=== PATIENT | male | born 1945 | race Caucasian/White ===

== ENCOUNTER → 2016-10-01 | Outpatient (CLI) | payer MEDICARE ==
[~2016-10-01] VITALS: Ht 175.3 cm; Wt 94.3 kg
[2016-10-01 12:52] LABS: Basophils # (auto) 0 uL; Basophils % (auto) 0.4 % (0.0-2.0); CONDITION Y; Eosinophils # (auto) 0.1 uL; Eosinophils % (auto) 1.4 % (0.0-7.0); Hematocrit 46.5 % (41.0-53.0); Hemoglobin 16.1 g/dL (13.5-17.5); Lymphocytes # (auto) 1.3 uL; Lymphocytes % (auto) 25.1 % (10.0-50.0); Mean Corpuscular Hemoglobin 30.5 pg (28.0-32.0); Mean Corpuscular Hgb Conc. 34.6 g/dL (32.0-36.0); Mean Corpuscular Volume 88.3 fL (80.0-100.0); Mean Platelet Volume 9.5 fL (7.4-10.4); Monocytes # (auto) 0.3 uL; Monocytes % (auto) 6.4 % (0.0-12.0); Neutrophils # (auto) 3.5 uL; Neutrophils % (auto) 66.7 % (37.0-80.0); Platelet Count (auto) 195 10^3/uL (140-450); Red Cell Distribution Width 13.3 % (11.6-16.0); White Blood Cell 5.2 10^3/uL (4.4-10.8)
[2016-10-01 13:02] LABS: Albumin 3.6 g/dL (3.4-5.0); Alkaline Phosphatase 79 U/L (45-117); Anion Gap 7 (5-15); Aspartate Aminotransferase 8 U/L (15-37); BUN/Creatinine Ratio 16.7; Bilirubin, Direct < 0.1 mg/dL (0-0.2); Bilirubin, Total 0.7 mg/dL (0.2-1.0); Blood Urea Nitrogen 13 mg/dL (7-18); Calcium 8.6 mg/dL (8.5-10.1); Carbon Dioxide 25 mmol/L (21-32); Chloride 104 mmol/L (98-107); Cholesterol 203 mg/dL (< 200); GFR African American 126 mL/min; GFR Non-African American 104 mL/min; Glucose 243 mg/dL (74-106); HDL Cholesterol 38 mg/dL (40-59); Sodium 136 mmol/L (136-145); Total Protein 7.2 g/dL (6.4-8.2); Triglycerides 423 mg/dL (< 150)
[2016-10-01 13:16] LABS: Urine Bilirubin Negative (Negative); Urine Blood Negative /uL (Negative); Urine Color Yellow (Yellow); Urine Ketone Negative (Negative); Urine Nitrite Negative (Negative); Urine Urobilinogen Normal (Negative)
[2016-10-01 13:23] LABS: Urine Glucose 4+ mg/dL (Normal)
== END | disposition home or self-care (01) ==
LOC: Rad HDHVI 08:30
PROVIDERS: ATTEND Internal Medicine Cardiovascular Disease
DX: I10 Essential (primary) hypertension (principal); E78.00 Pure hypercholesterolemia, unspecified; K74.1 Hepatic sclerosis; E11.9 Type 2 diabetes mellitus without complications; R97.20 Elevated prostate specific antigen [PSA]; R53.81 Other malaise; E03.9 Hypothyroidism, unspecified; D64.9 Anemia, unspecified; E55.9 Vitamin D deficiency, unspecified; N39.0 Urinary tract infection, site not specified
CPT/HCPCS: 36415; 78452; 80048; 80061; 80076; 81003; 82306; 83036; 84153; 84403; 84439; 84443; 85025; 93017; 96374; A9500

== ENCOUNTER → 2016-10-05 | Outpatient (CLI) | payer MEDICARE | END | disposition home or self-care (01) | LOC: Rad HDHVI 08:57 | PROVIDERS: ATTEND Internal Medicine Cardiovascular Disease | DX: I10 Essential (primary) hypertension (principal); R06.02 Shortness of breath | CPT/HCPCS: 93306; 93880 ==

== ENCOUNTER → 2017-07-01 | Outpatient (CLI) | payer MEDICARE, BC ==
[2017-07-01 12:32] LABS: Basophils # (auto) 0 uL; Basophils % (auto) 0.5 % (0.0-2.0); Eosinophils # (auto) 0.1 uL; Eosinophils % (auto) 1.2 % (0.0-7.0); Hematocrit 47.5 % (41.0-53.0); Hemoglobin 16.2 g/dL (13.5-17.5); Lymphocytes # (auto) 1.6 uL; Lymphocytes % (auto) 24.8 % (10.0-50.0); Mean Corpuscular Hemoglobin 30.9 pg (28.0-32.0); Mean Corpuscular Volume 90.7 fL (80.0-100.0); Monocytes # (auto) 0.4 uL; Monocytes % (auto) 6.5 % (0.0-12.0); Neutrophils # (auto) 4.2 uL; Nucleated Red Blood Cells % 0.7 %; Platelet Count (auto) 199 10^3/uL (140-450); Red Blood Cells 5.24 10^6/uL (4.5-5.90); Red Cell Distribution Width 12.7 % (11.8-14.3); White Blood Cell 6.3 10^3/uL (4.4-10.8)
[2017-07-01 13:15] LABS: Albumin 3.8 g/dL (3.4-5.0); BUN/Creatinine Ratio 16.9; Bilirubin, Direct 0.2 mg/dL (0-0.2); Bilirubin, Total 0.6 mg/dL (0.2-1.0); Calcium 9.2 mg/dL (8.5-10.1); Potassium 3.9 mmol/L (3.5-5.1); Total Protein 7.6 g/dL (6.4-8.2)
== END | disposition home or self-care (01) ==
LOC: LAB 09:07
PROVIDERS: ATTEND Internal Medicine Cardiovascular Disease
DX: E78.5 Hyperlipidemia, unspecified (principal); D64.9 Anemia, unspecified; I10 Essential (primary) hypertension; E11.9 Type 2 diabetes mellitus without complications; E03.9 Hypothyroidism, unspecified; E55.9 Vitamin D deficiency, unspecified; R53.81 Other malaise; R97.20 Elevated prostate specific antigen [PSA]
CPT/HCPCS: 36415; 80048; 80061; 80076; 82306; 83036; 84153; 84403; 84443; 85025

== ENCOUNTER → 2018-10-11 | Outpatient (CLI) | payer MEDICARE, BC | END | disposition home or self-care (01) | LOC: Rad HDHVI 09:51 | PROVIDERS: ATTEND Internal Medicine Cardiovascular Disease | DX: I07.1 Rheumatic tricuspid insufficiency (principal); I11.0 Hypertensive heart disease with heart failure; I50.33 Acute on chronic diastolic (congestive) heart failure; E70.0 Classical phenylketonuria; I27.20 Pulmonary hypertension, unspecified | CPT/HCPCS: 93306; 93926 ==

== ENCOUNTER → 2018-10-17 | Outpatient (CLI) | payer MEDICARE, BC ==
[~2018-10-17] VITALS: Ht 175.3 cm; Wt 95.3 kg
[2018-10-17 12:07] LABS: Basophils # (auto) 0 uL; Basophils % (auto) 0.8 % (0.0-2.0); Eosinophils # (auto) 0.1 uL; Eosinophils % (auto) 1.9 % (0.0-7.0); Hematocrit 48.2 % (41.0-53.0); Hemoglobin 16.3 g/dL (13.5-17.5); Lymphocytes # (auto) 1.3 uL; Lymphocytes % (auto) 23.2 % (10.0-50.0); Mean Corpuscular Hemoglobin 30.3 pg (28.0-32.0); Mean Corpuscular Hgb Conc. 33.8 g/dL (32.0-36.0); Mean Corpuscular Volume 89.6 fL (80.0-100.0); Monocytes # (auto) 0.4 uL; Monocytes % (auto) 7.2 % (0.0-12.0); Neutrophils # (auto) 3.7 uL; Neutrophils % (auto) 66.9 % (37.0-80.0); Nucleated Red Blood Cells % 0.5 %; Platelet Count (auto) 181 10^3/uL (140-450); Red Blood Cells 5.38 10^6/uL (4.5-5.90); Red Cell Distribution Width 13.4 % (11.8-14.3); White Blood Cell 5.5 10^3/uL (4.4-10.8)
[2018-10-17 12:11] LABS: Urine Blood Negative /uL (Negative); Urine Specific Gravity 1.022 (1.001-1.035)
[2018-10-17 12:23] LABS: Albumin 3.6 g/dL (3.4-5.0); Anion Gap 9 (5-15); Calcium 9.2 mg/dL (8.5-10.1); Carbon Dioxide 25 mmol/L (21-32); Chloride 103 mmol/L (98-107); Potassium 4.4 mmol/L (3.5-5.1); Sodium 137 mmol/L (136-145)
[2018-10-17 12:30] LABS: Alanine Aminotransferase 24 U/L (16-61); Alkaline Phosphatase 76 U/L (45-117); Aspartate Aminotransferase 12 U/L (15-37); BUN/Creatinine Ratio 18.1; Bilirubin, Total 0.7 mg/dL (0.2-1.0); Blood Urea Nitrogen 17 mg/dL (7-18); Cholesterol 227 mg/dL (< 200); GFR African American 101 mL/min; GFR Non-African American 83 mL/min; Glucose 223 mg/dL (74-106); HDL Cholesterol 35 mg/dL (40-59); Total Protein 7.7 g/dL (6.4-8.2); Triglycerides 463 mg/dL (< 150)
[2018-10-17 12:35] LABS: Free T4 (Free Thyroxine) 1.09 ng/dL (0.89-1.76); Prostate Specific Antigen 0.62 ng/mL (0.0-4.0)
== END | disposition home or self-care (01) ==
LOC: Rad HDHVI 08:25
PROVIDERS: ATTEND Internal Medicine Cardiovascular Disease
DX: C61 Malignant neoplasm of prostate (principal); K90.9 Intestinal malabsorption, unspecified; E29.1 Testicular hypofunction; N39.0 Urinary tract infection, site not specified; E11.65 Type 2 diabetes mellitus with hyperglycemia; Z79.899 Other long term (current) drug therapy
CPT/HCPCS: 36415; 78452; 80053; 80061; 81003; 82306; 82607; 83036; 84153; 84403; 84439; 84443; 85025; 93017; 96374; A9500

== ENCOUNTER → 2019-01-22 | Outpatient (CLI) | payer MEDICARE, BC | END | disposition home or self-care (01) | LOC: LAB 08:17 | PROVIDERS: ATTEND Internal Medicine Cardiovascular Disease | DX: E11.9 Type 2 diabetes mellitus without complications (principal) | CPT/HCPCS: 36415; 83036 ==

== ENCOUNTER → 2020-10-20 | Outpatient (CLI) | payer MEDICARE, BC | END | disposition home or self-care (01) | LOC: Rad HDHVI 14:57 | PROVIDERS: ATTEND Internal Medicine Cardiovascular Disease | DX: R07.89 Other chest pain (principal); E78.5 Hyperlipidemia, unspecified | CPT/HCPCS: 93306 ==

== ENCOUNTER → 2021-03-02 | Outpatient (CLI) | payer MEDICARE, BC | END | disposition home or self-care (01) | LOC: Rad HDHVI 08:49 | PROVIDERS: ATTEND Internal Medicine Cardiovascular Disease | DX: S32.049A Unspecified fracture of fourth lumbar vertebra, initial encounter for closed fracture (principal); S32.059A Unspecified fracture of fifth lumbar vertebra, initial encounter for closed fracture; M47.816 Spondylosis without myelopathy or radiculopathy, lumbar region; M48.061 Spinal stenosis, lumbar region without neurogenic claudication; M40.56 Lordosis, unspecified, lumbar region; M79.9 Soft tissue disorder, unspecified; M25.78 Osteophyte, vertebrae; Q05.7 Lumbar spina bifida without hydrocephalus; X58.XXXA Exposure to other specified factors, initial encounter; Y93.89 Activity, other specified; Y92.89 Other specified places as the place of occurrence of the external cause; Y99.8 Other external cause status | CPT/HCPCS: 72131 ==

== ENCOUNTER → 2021-03-30 | Outpatient (CLI) | payer MEDICARE, BC ==
[2021-03-30 11:09] LABS: Urine Blood Negative /uL (Negative); Urine Specific Gravity 1.019 (1.001-1.035)
[2021-03-30 11:10] LABS: Basophils # (auto) 0.1 10 ^3/uL (0-0.2); Eosinophils # (auto) 0.1 10 ^3/uL (0-0.8); Eosinophils % (auto) 1.8 % (0.0-7.0); Hematocrit 42.2 % (41.0-53.0); Lymphocytes # (auto) 1.4 10 ^3/uL (0.4-5.4); Lymphocytes % (auto) 20.7 % (10.0-50.0); Mean Corpuscular Hemoglobin 30.1 pg (28.0-32.0); Mean Corpuscular Hgb Conc. 33.3 g/dL (32.0-36.0); Mean Corpuscular Volume 90.4 fL (80.0-100.0); Monocytes # (auto) 0.5 10 ^3/uL (0-1.3); Monocytes % (auto) 6.7 % (0.0-12.0); Neutrophils # (auto) 4.9 10 ^3/uL (1.6-8.6); Neutrophils % (auto) 69.8 % (37.0-80.0); Nucleated Red Blood Cells % 0.1 %; Red Blood Cells 4.66 10^6/uL (4.5-5.90); Red Cell Distribution Width 13.4 % (11.8-14.3)
[2021-03-30 11:21] LABS: Potassium 5.1 mmol/L (3.5-5.1)
[2021-03-30 11:28] LABS: Free T4 (Free Thyroxine) 1.37 ng/dL (0.89-1.76); Prostate Specific Antigen 0.74 ng/mL (0.0-4.0)
[2021-03-30 11:30] LABS: Albumin 3.6 g/dL (3.4-5.0); BUN/Creatinine Ratio 20.2; Bilirubin, Total 0.4 mg/dL (0.2-1.0); Calcium 9.4 mg/dL (8.5-10.1); Total Protein 7.5 g/dL (6.4-8.2)
== END | disposition home or self-care (01) ==
LOC: LAB 08:19
PROVIDERS: ATTEND Internal Medicine Cardiovascular Disease
DX: C61 Malignant neoplasm of prostate (principal); E11.9 Type 2 diabetes mellitus without complications; D51.3 Other dietary vitamin B12 deficiency anemia; D64.9 Anemia, unspecified; E55.9 Vitamin D deficiency, unspecified; I10 Essential (primary) hypertension; R00.2 Palpitations; R53.1 Weakness; R30.0 Dysuria
CPT/HCPCS: 36415; 80053; 80061; 81003; 82306; 82607; 83036; 84153; 84403; 84439; 84443; 85025

== ENCOUNTER → 2023-02-01 | Outpatient (CLI) | payer MEDICARE, BC | END | disposition home or self-care (01) | LOC: Rad HDHVI 13:58 | PROVIDERS: ATTEND Internal Medicine Cardiovascular Disease | DX: I08.3 Combined rheumatic disorders of mitral, aortic and tricuspid valves (principal); E78.5 Hyperlipidemia, unspecified | CPT/HCPCS: 93306 ==

== ENCOUNTER → 2023-02-04 | Outpatient (CLI) | payer MEDICARE, BC ==
[~2023-02-04] VITALS: Ht 175.3 cm; Wt 94.8 kg
== END | disposition home or self-care (01) ==
LOC: Rad HDHVI 08:21
PROVIDERS: ATTEND Internal Medicine Cardiovascular Disease
DX: I10 Essential (primary) hypertension (principal); E11.42 Type 2 diabetes mellitus with diabetic polyneuropathy; E11.65 Type 2 diabetes mellitus with hyperglycemia; E78.5 Hyperlipidemia, unspecified
CPT/HCPCS: 78452; 93017; 96374; A9500

== ENCOUNTER → 2023-02-09 | Outpatient (CLI) | payer MEDICARE, BC | END | disposition home or self-care (01) | LOC: Rad HDHVI 08:03 | PROVIDERS: ATTEND Internal Medicine Cardiovascular Disease | DX: I10 Essential (primary) hypertension (principal); E78.5 Hyperlipidemia, unspecified | CPT/HCPCS: 93880 ==

== ENCOUNTER 2023-03-17 06:25 | Inpatient (IN) | payer MEDICARE, BC ==
[2023-03-16 13:53] LABS: Basophils # (auto) 0 10 ^3/uL (0-0.2); Basophils % (auto) 0.6 % (0.0-2.0); Eosinophils # (auto) 0.2 10 ^3/uL (0-0.8); Eosinophils % (auto) 2.4 % (0.0-7.0); Hematocrit 45.1 % (41.0-53.0); Hemoglobin 14.9 g/dL (13.5-17.5); Lymphocytes # (auto) 1.3 10 ^3/uL (0.4-5.4); Lymphocytes % (auto) 18.2 % (10.0-50.0); Mean Corpuscular Hemoglobin 30.7 pg (28.0-32.0); Mean Corpuscular Hgb Conc. 32.9 g/dL (32.0-36.0); Mean Corpuscular Volume 93.2 fL (80.0-100.0); Monocytes # (auto) 0.4 10 ^3/uL (0-1.3); Monocytes % (auto) 6.1 % (0.0-12.0); Neutrophils # (auto) 5.3 10 ^3/uL (1.6-8.6); Neutrophils % (auto) 72.7 % (37.0-80.0); Nucleated Red Blood Cells % 0.1 %; Red Blood Cells 4.84 10^6/uL (4.5-5.90); Red Cell Distribution Width 13.6 % (11.8-14.3); White Blood Cell 7.2 10^3/uL (4.4-10.8)
[2023-03-16 14:05] LABS: INR 0.99 (0.9-1.15); Partial Thromboplastin Time 30.1 SEC (24.5-34.5); Prothrombin Time 10.4 sec (9.3-11.8)
[2023-03-16 14:32] LABS: Chloride 107 mmol/L (98-107); Potassium 4.7 mmol/L (3.5-5.1); Sodium 141 mmol/L (136-145)
[2023-03-16 14:33] LABS: Anion Gap 7 (5-15); Calcium 8.9 mg/dL (8.5-10.1); Carbon Dioxide 27 mmol/L (20-30)
[2023-03-16 14:38] LABS: Blood Urea Nitrogen 20 mg/dL (9-23); Glucose 241 mg/dL (74-106)
[~2023-03-17] VITALS: Ht 175.3 cm; Wt 98.7 kg
[2023-03-17] VITALS (11 sets, daily range): BP systolic 106–163; BP diastolic 77–112; PULSE 68–85; RESP 12–20; TEMP 97.2–97.8; O2SAT 94–99
[~2023-03-17 06:25] MED LIST: CHOL20007 OR; DAPA1TAB4 PO; GABA300C PO; METF-370 PO; TAMS0.4C36 PO
[2023-03-17] MEDS ORDERED: ANGIOMAX 250 MG VIAL IV ONE (07:56)
[2023-03-17] MEDS ORDERED: MIDAZOLAM HCL 2MG/2ML 2ml VIAL (1mg/ml) ONE (07:56)
[2023-03-17] MEDS ORDERED: fentaNYL CITRATE 100 MCG/2 ML VL ONE (07:56)
[2023-03-17] MEDS ORDERED: SODIUM CHL 0.9% 50 ML ONE (07:57)
[2023-03-17] MEDS ORDERED: IOHEXOL 350 MG/ML 100ML IJ ONE (08:21)
[2023-03-17] MEDS ORDERED: ATROPINE SULF 1 MG/10ml SYR ONE (08:27)
[2023-03-17] MEDS ORDERED: TICAGRELOR 90 MG TAB ONE (08:54)
[2023-03-17] MEDS ORDERED: ASPirin 325 MG TAB ONE (08:54)
[2023-03-17] MEDS ORDERED: ACETAMINOPHEN 500 MG TAB PO PRN (09:15)
[2023-03-17] MEDS ORDERED: MORPHINE SULFATE INJ 2 MG/ml SYRG IV PRN (09:15)
[2023-03-17] MEDS ORDERED: DEXTROSE (50%) 50ML SYRG IV PRN (09:15)
[2023-03-17] MEDS ORDERED: ONDANSETRON HCL 4 MG/2 ML VIAL IV PRN (09:15)
[2023-03-17] MEDS ORDERED: NITROGLYCERIN 0.4 MG SL TAB SL PRN (09:15)
[2023-03-17] MEDS ORDERED: [UNRECOGNIZED DRUG - CODE] PO (09:28)
[2023-03-17] MEDS ORDERED: [UNRECOGNIZED DRUG - OTHER] PO SCH (10:00)
[2023-03-17] MEDS ORDERED: HYDROCHLOROTHIAZIDE PO SCH (10:00)
[2023-03-17] MEDS ORDERED: TAMSULOSIN HYDROCHLORIDE 0.4 MG CAP PO ONE (10:05)
[2023-03-17] MEDS: TAMSULOSIN HYDROCHLORIDE 0.4 MG CAP PO SCH (10:19)
[2023-03-17] MEDS: InsuLIN REG 1unit/0.01ml Soln (100units/ml) SC SCH ×3 (12:32→22:00)
[2023-03-17] MEDS: ACCU-CHEK COMFORT CURVE STRIP VI SCH ×3 (12:32→22:02)
[2023-03-17] MEDS ORDERED: ATORVASTATIN 20 MG TAB PO SCH (22:00)
[2023-03-17] MEDS: HYDROCHLOROTHIAZIDE PO SCH (22:02)
[2023-03-17] MEDS: [UNRECOGNIZED DRUG - OTHER] PO SCH (22:02)
[2023-03-17] MEDS: TICAGRELOR 90 MG TAB PO SCH (22:02)
[2023-03-18 05:00] VITALS: BP 134/76; PULSE 75; RESP 20; TEMP 97.9; O2SAT 94
[2023-03-18] MEDS: ACCU-CHEK COMFORT CURVE STRIP VI SCH ×2 (05:18→12:07)
[2023-03-18] MEDS: InsuLIN REG 1unit/0.01ml Soln (100units/ml) SC SCH ×2 (05:18→12:10)
[2023-03-18 08:00] VITALS: PULSE 100
[2023-03-18 09:00] VITALS: BP 136/88; PULSE 106; RESP 20; TEMP 97.8; O2SAT 97
[2023-03-18] MEDS: TAMSULOSIN HYDROCHLORIDE 0.4 MG CAP PO SCH (09:59)
[2023-03-18] MEDS: TICAGRELOR 90 MG TAB PO SCH (09:59)
[2023-03-18] MEDS: [UNRECOGNIZED DRUG - OTHER] PO SCH (10:00)
[2023-03-18] MEDS ORDERED: ASPirin 81 mg TAB PO SCH (10:00)
[2023-03-18] MEDS: HYDROCHLOROTHIAZIDE PO SCH (10:00)
[2023-03-18 13:00] VITALS: BP 129/75; PULSE 99; RESP 18; TEMP 98; O2SAT 96
[2023-03-18 15:14] VITALS: TEMP 36.7
== END 2023-03-18 16:24 | disposition home or self-care (01) | DRG 324 ==
LOC: CATH 06:25 → TELE-WESTW 09:09
PROVIDERS: ADMIT Internal Medicine Cardiovascular Disease; ATTEND Internal Medicine Cardiovascular Disease
PROC: 4A023N7 Measurement of Cardiac Sampling and Pressure, Left Heart, Percutaneous Approach (ICD-10-PCS; principal; 2023-03-17)
PROC: 02703GZ Dilation of Coronary Artery, One Artery with Four or More Intraluminal Devices, Percutaneous Approach (ICD-10-PCS; 2023-03-17)
PROC: 02F03ZZ Fragmentation in Coronary Artery, One Artery, Percutaneous Approach (ICD-10-PCS; 2023-03-17)
PROC: 02C03ZZ Extirpation of Matter from Coronary Artery, One Artery, Percutaneous Approach (ICD-10-PCS; 2023-03-17)
PROC: B2111ZZ Fluoroscopy of Multiple Coronary Arteries using Low Osmolar Contrast (ICD-10-PCS; 2023-03-17)
PROC: B2151ZZ Fluoroscopy of Left Heart using Low Osmolar Contrast (ICD-10-PCS; 2023-03-17)
DX: I25.5 Ischemic cardiomyopathy (principal); E78.5 Hyperlipidemia, unspecified; E11.9 Type 2 diabetes mellitus without complications; I25.10 Atherosclerotic heart disease of native coronary artery without angina pectoris
CPT/HCPCS: 36415; 80048; 82962; 85025; 85610; 85730; 92928; 92929; 92933; 93005; 93458; 99152; C1874; C1887; G0378; G0463; J1815; J2250; Q9967

== ENCOUNTER → 2023-04-07 | Outpatient (CLI) | payer MEDICARE, BC ==
[~2023-04-07] MED LIST changes: -CHOL20007 OR; -GABA300C PO; +[UNRECOGNIZED DRUG - CODE] PO
== END | disposition home or self-care (01) ==
LOC: Rad HDHVI 10:02
PROVIDERS: ATTEND Internal Medicine Cardiovascular Disease
DX: I08.3 Combined rheumatic disorders of mitral, aortic and tricuspid valves (principal); I11.9 Hypertensive heart disease without heart failure; E78.5 Hyperlipidemia, unspecified
CPT/HCPCS: 93306

== ENCOUNTER → 2023-09-19 | Outpatient (CLI) | payer MEDICARE, BC | END | disposition home or self-care (01) | LOC: Rad HDHVI 09:59 | PROVIDERS: ATTEND Internal Medicine Cardiovascular Disease | DX: I34.0 Nonrheumatic mitral (valve) insufficiency (principal); I11.9 Hypertensive heart disease without heart failure; E78.5 Hyperlipidemia, unspecified | CPT/HCPCS: 93306 ==

== ENCOUNTER → 2023-09-28 | Outpatient (CLI) | payer MEDICARE, BC ==
[~2023-09-28] VITALS: Ht 175.3 cm; Wt 96.6 kg
== END | disposition home or self-care (01) ==
LOC: Rad HDHVI 09:47
PROVIDERS: ATTEND Internal Medicine Cardiovascular Disease
DX: R53.83 Other fatigue (principal); I10 Essential (primary) hypertension; E11.9 Type 2 diabetes mellitus without complications; E78.5 Hyperlipidemia, unspecified; E11.42 Type 2 diabetes mellitus with diabetic polyneuropathy; I25.10 Atherosclerotic heart disease of native coronary artery without angina pectoris; Z79.899 Other long term (current) drug therapy
CPT/HCPCS: 78452; 93017; 96374; A9500

== ENCOUNTER 2023-11-16 12:56 | Emergency (ER) | payer MEDICARE, OTHER ==
[~2023-11-16] VITALS: Ht 175.3 cm; Wt 90.9 kg
[~2023-11-16 12:56] MED LIST changes: -TAMS0.4C36 PO; +TAMS0.4C39 PO
[2023-11-16] MEDS: SODIUM CHLORIDE 0.9% 1,000 ML IV ONE (13:30)
[2023-11-16 13:42] LABS: Basophils # (auto) 0.1 10 ^3/uL (0-0.2); Basophils % (auto) 0.5 % (0.0-2.0); Eosinophils # (auto) 0.2 10 ^3/uL (0-0.8); Eosinophils % (auto) 1.7 % (0.0-7.0); Hematocrit 42.8 % (41.0-53.0); Hemoglobin 14.4 g/dL (13.5-17.5); Lymphocytes # (auto) 2.6 10 ^3/uL (0.4-5.4); Lymphocytes % (auto) 26.4 % (10.0-50.0); Mean Corpuscular Hemoglobin 31.7 pg (28.0-32.0); Mean Corpuscular Hgb Conc. 33.7 g/dL (32.0-36.0); Mean Corpuscular Volume 94.1 fL (80.0-100.0); Monocytes # (auto) 0.8 10 ^3/uL (0-1.3); Neutrophils # (auto) 6.4 10 ^3/uL (1.6-8.6); Neutrophils % (auto) 63.4 % (37.0-80.0); Nucleated Red Blood Cells % 0.2 %; Platelet Count (auto) 226 10^3/uL (140-450); Red Blood Cells 4.55 10^6/uL (4.5-5.90); Red Cell Distribution Width 13.8 % (11.8-14.3)
[2023-11-16 13:57] LABS: Alanine Aminotransferase 31 U/L (7-40); Albumin 4.1 g/dL (3.2-4.8); Alkaline Phosphatase 75 U/L (46-116); Anion Gap 9 (5-15); Aspartate Aminotransferase 19 U/L (13-40); BUN/Creatinine Ratio 19.9 (10.0-20.0); Bilirubin, Total 0.6 mg/dL (0.2-1.0); Blood Urea Nitrogen 36 mg/dL (9-23); Calcium 9.3 mg/dL (8.7-10.4); Carbon Dioxide 21 mmol/L (20-30); Chloride 112 mmol/L (98-107); Glucose 157 mg/dL (74-106); Potassium 4.8 mmol/L (3.5-5.1); Sodium 142 mmol/L (136-145); Total Protein 6.3 g/dL (5.7-8.2)
[2023-11-16 15:30] VITALS: PULSE 74; RESP 20; O2SAT 96
[2023-11-16 15:55] LABS: Hematocrit 41.1 % (41.0-53.0); Hemoglobin 13.4 g/dL (13.5-17.5)
[2023-11-16] MEDS: ceFAZolin 1GM/50ML 50 ML IV ONE (16:07)
[2023-11-16] MEDS: TETANUS-DIPTH-ACEL PERTUSSIS 0.5ML SYR Tdap IM ONE (16:09)
[2023-11-16] MEDS: ONDANSETRON HCL 4 MG/2 ML VIAL IV ONE (16:10)
[2023-11-16] MEDS: LIDOCAINE HCL 2 %PF INJ 10ML AMP IJ ONE (16:45)
[2023-11-16] MEDS ORDERED: AUG875T PO (18:13)
[2023-11-16] MEDS ORDERED: HYDR-4902 PO (18:13)
[2023-11-16 18:31] VITALS: BP 123/61; PULSE 76; RESP 16; TEMP 98.1; O2SAT 96
== END 2023-11-16 18:00 | disposition home or self-care (01) ==
LOC: ER 12:56
DX: S51.812A Laceration without foreign body of left forearm, initial encounter (principal); W26.8XXA Contact with other sharp object(s), not elsewhere classified, initial encounter; Y93.89 Activity, other specified; Y92.89 Other specified places as the place of occurrence of the external cause; Y99.8 Other external cause status
CPT/HCPCS: 12002; 36415; 73090; 80053; 85014; 85018; 85025; 90471; 90715; 96361; 96365; 96375; 99284; J0690; J2405; J7030

== ENCOUNTER 2023-12-01 14:08 | Emergency (ER) | payer MEDICARE, OTHER ==
[~2023-12-01] VITALS: Ht 175.3 cm; Wt 90.9 kg
[~2023-12-01 14:08] MED LIST changes: +AUG875T PO; +HYDR-4902 PO
[2023-12-01 14:50] VITALS: BP 111/65; PULSE 110; RESP 18; TEMP 99.5; O2SAT 97
== END 2023-12-01 15:03 | disposition home or self-care (01) ==
LOC: ER 14:10
DX: S51.812D Laceration without foreign body of left forearm, subsequent encounter (principal); Z79.84 Long term (current) use of oral hypoglycemic drugs; X58.XXXD Exposure to other specified factors, subsequent encounter

== ENCOUNTER → 2024-08-27 | Outpatient (CLI) | payer MEDICARE, OTHER | END | disposition home or self-care (01) | LOC: Rad HDHVI 13:56 | PROVIDERS: ATTEND Internal Medicine Cardiovascular Disease | DX: I07.1 Rheumatic tricuspid insufficiency (principal); I50.33 Acute on chronic diastolic (congestive) heart failure; G45.9 Transient cerebral ischemic attack, unspecified | CPT/HCPCS: 93306 ==

== ENCOUNTER 2024-09-19 08:53 | Outpatient (CLI) | payer MEDICARE, OTHER ==
[~2024-09-19] VITALS: Ht 170.2 cm; Wt 95.3 kg
--- NOTE | 2024-09-25 13:27 | DVHSR ---
APPROVED REPORT Exam: Nuclear Stress Test Indication: CAD Ht: 5 ft 7 in Wt: 210 lbs BSA: 2.07 m2 HR: 80 bpm BP: 158/73 mmHg BMI: 32.88 Rhythm: NSR, First degree AV Block Medical History Medical History: Stent, HTN, Hypercholesterolemia, Diabetes, CHF Medications: Tamsulosin, Olmesartan/Hct, Farxiga, Metformin, Potassium, Vit D3, Brilinta, Corlanor, G lipizide, Metoprolol succ Allergies: No known drug allergies Meds Held (24 hrs): Metoprolol Stress Test Details Stress Test: Exercise stress testing was performed using a modified Kenton protocol. HR Resting HR: 80 bpmMax Heart Rate (APMHR): 140.787276 bpm Max HR Achieved: 125 bpmTarget HR (85% APMHR): 119.313995 bpm % of APMHR: 89.29 Recovery HR: 82 bpm BP Resting BP: 158/73 mmHg Max BP: 174/79 mmHg Recovery BP: 166/76 mmHg BP response to stress: Resting hypertension ECG Resting ECG: Sinus Rhythm Stress ECG: Sinus Tachycardia Arrhythmia: PVCs, PVC pairs, PACs Recovery ECG: Sinus Rhythm Clinical Reason for Termination: LE fatigue Stress Symptoms: Leg Fatigue Exercise duration: 4 min 41 sec Exercise capacity: 7.0 METs Stress ECG Conclusion EF 30% NON ISCHEMIC CLINICAL RESPONSE NON ISCHEMIC ECG RESPONSE NON ISCHEMIC STRESS CARDIOLITE LESS THAN 10% LIKELIHOOD FOR STRESS INDUCED ISCHEMIA NM EXAM: Myocardial Perfusion REST/STRESS Imaging Protocol: Rest Tc-99m/Stress Tc-99m 1 day Resting Data Rest SPECT myocardial perfusion imaging was performed in supine position 30 minutes following the int ravenous injection of 10.63 mCi of Tc-99m Sestamibi. Time of rest injection: 906 Date: 09/19/2024 Time of rest imagin Date: 09/19/2024 Administration Route: IV Administration Site: Right AC Exercise Stress At peak stress, the patient was injected intravenously with 32.9 mCi of Tc-99m Sestamibi. Time of stress injection: 1040 Date: 09/19/2024 Time of stress imagin Date: 09/19/2024 Administration Route: IV Administration Site: Right AC Heart Rate at time of stress injection: 121 bpm. Patient continued to exercise for 1 minute(s). Gated Stress SPECT was performed 15 minutes after stress injection. The images were gated to evaluate regional wall motion and calculate left ventricular ejection fracti on. Nuclear Conclusion ECG Findings: negative for ischemia Clinical Findings: negative for ischemia Nuclear Findings: negative for ischemia Left Ventricular Function: abnormal EF 30% NON ISCHEMIC CLINICAL RESPONSE NON ISCHEMIC ECG RESPONSE NON ISCHEMIC STRESS CARDIOLITE LESS THAN 10% LIKELIHOOD FOR STRESS INDUCED ISCHEMIA
== END 2024-09-19 17:00 | disposition home or self-care (01) ==
LOC: Rad HDHVI 08:53
PROVIDERS: ATTEND Internal Medicine Cardiovascular Disease
DX: I49.3 Ventricular premature depolarization (principal); I49.1 Atrial premature depolarization; I11.0 Hypertensive heart disease with heart failure; I50.43 Acute on chronic combined systolic (congestive) and diastolic (congestive) heart failure; E11.21 Type 2 diabetes mellitus with diabetic nephropathy; I25.10 Atherosclerotic heart disease of native coronary artery without angina pectoris; E78.00 Pure hypercholesterolemia, unspecified; I25.5 Ischemic cardiomyopathy
CPT/HCPCS: 78452; 93017; A9500; 96374

== ENCOUNTER 2024-10-08 09:48 | Outpatient (CLI) | payer MEDICARE, OTHER ==
[2024-10-08 09:55] VITALS: BP 178/80; PULSE 79; RESP 16; O2SAT 96
[2024-10-08 10:08] VITALS: BP 165/83; PULSE 77; RESP 16; O2SAT 96
[2024-10-08] MEDS ORDERED: METF-490 PO (12:12)
[2024-10-08] MEDS ORDERED: TICA90TA PO (12:12)
[2024-10-08] MEDS ORDERED: CHOL50007 PO (12:12)
[2024-10-08] MEDS ORDERED: POTA-36 PO (12:12)
[2024-10-08] MEDS ORDERED: IVAB1.7T PO (12:12)
[2024-10-08] MEDS ORDERED: METO-289 PO (12:12)
[2024-10-08] MEDS ORDERED: GLIP10TA9 PO (12:12)
--- NOTE | 2024-10-08 12:50 | DVH ---
XY CHEST TWO VIEWS ROUTINE CLINICAL HISTORY: PRE OP CARDIAC CLEARANCE, pain COMPARISON: None TECHNIQUE: Frontal and lateral view of the chest was obtained FINDINGS: Lines and Tubes: None Lungs: No focal consolidation. Pleura: No effusion. No pneumothorax. Cardiomediastinal contours: Unremarkable Bones: No acute osseous abnormality. IMPRESSION: No acute cardiopulmonary disease.
== END 2024-10-08 17:00 | disposition home or self-care (01) ==
LOC: Rad HDHVI 09:48
PROVIDERS: ATTEND Internal Medicine Cardiovascular Disease
DX: Z01.818 Encounter for other preprocedural examination (principal); R94.31 Abnormal electrocardiogram [ECG] [EKG]; I25.5 Ischemic cardiomyopathy
CPT/HCPCS: 71046; 93005; G0463

== ENCOUNTER 2024-10-11 06:21 | Day surgery (SDC) | payer MEDICARE, OTHER ==
[2024-10-08 12:58] LABS: Chloride 105 mmol/L (98-107); Potassium 4.7 mmol/L (3.5-5.1); Sodium 139 mmol/L (136-145)
[2024-10-08 12:59] LABS: Anion Gap 8 (5-15); Carbon Dioxide 26 mmol/L (20-31)
[2024-10-08 13:00] LABS: Calcium 9.1 mg/dL (8.7-10.4)
[2024-10-08 13:05] LABS: BUN/Creatinine Ratio 11.9 (10.0-20.0); Blood Urea Nitrogen 15 mg/dL (9-23)
[2024-10-08 13:07] LABS: Glucose 120 mg/dL (74-106)
[2024-10-08 13:10] LABS: Hematocrit 44.3 % (41.0-53.0); Hemoglobin 15.1 g/dL (13.5-17.5); Mean Corpuscular Hemoglobin 31.5 pg (28.0-32.0); Mean Corpuscular Volume 92.2 fL (80.0-100.0); Nucleated Red Blood Cells % 0.2 %
[2024-10-08 13:24] LABS: INR 0.97 (0.9-1.15); Partial Thromboplastin Time 28.5 SEC (24.5-34.5); Prothrombin Time 10.3 sec (9.3-11.8)
[~2024-10-11] VITALS: Ht 175.3 cm; Wt 93.0 kg
[2024-10-11] VITALS (8 sets, daily range): BP systolic 125–155; BP diastolic 64–77; PULSE 62–84; RESP 12–13; O2SAT 94–96
[~2024-10-11 06:21] MED LIST changes: -AUG875T PO; +CHOL50007 PO; +GLIP10TA9 PO; -HYDR-4902 PO; +IVAB1.7T PO; -METF-370 PO; +METF-490 PO; +METO-289 PO; +POTA-36 PO; +TICA90TA PO
[2024-10-11] MEDS ORDERED: IOHEXOL 350 MG/ML 100ML IJ ONE (07:32)
[2024-10-11] MEDS ORDERED: LIDOCAINE 2%HCL (LOCAL ANESTH.) INJ 20ML MDV ONE (08:16)
[2024-10-11] MEDS ORDERED: MIDAZOLAM HCL 2MG/2ML 2ml VIAL (1mg/ml) ONE (08:16)
[2024-10-11] MEDS ORDERED: VANCOMYCIN HCL 1000 MG VL ONE (08:16)
[2024-10-11] MEDS ORDERED: fentaNYL CITRATE 100 MCG/2 ML VL ONE (08:16)
[2024-10-11] MEDS ORDERED: ceFAZolin 1GM/50ML 50 ML IV ONE (08:16)
[2024-10-11] MEDS ORDERED: hydrALAZINE HCL 20 MG/ML VL ONE (10:06)
[2024-10-11] MEDS ORDERED: FUROSEMIDE 20 MG/2 ML VIAL ONE (10:34)
--- NOTE | 2024-10-11 11:37 | DVH ---
EXAM: XY CHEST PORTABLE Indication: S/P PACEMAKER Technique: Single frontal view of the chest was obtained Comparison: XY CHEST TWO VIEWS ROUTINE on DOS: 10/08/24 FINDINGS: Lines and Tubes: Cardiac pacemaker projects over left chest wall. Lungs: No focal consolidation. Pulmonary edema. Pleura: No effusion. No pneumothorax. Cardiomediastinal contours: Unremarkable Bones: No acute osseous abnormality. IMPRESSION: Cardiac pacemaker projects over left chest wall. Mild pulmonary edema.
--- NOTE | 2024-10-11 12:00 | DVHDS ---
DATE OF DISCHARGE: 10/11/2024 DISCHARGE DIAGNOSIS: The patient is status post Bi-V AICD implantation with left bundle pacing. Clinically, the patient is stable and now being discharged home. The patient is to maintain on Keflex and resume his all medication except for Brilinta which he will start in one week. Stable at the time of discharge. DISPOSITION: Home. ACTIVITY: As instructed. DIET: 2-gram sodium 1800-calorie ADA diet. If the patient develops any of the symptoms that I have outlined to him, he is to contact me and come to the Emergency Room. Matthew Marshall MD SA/DAVID TID: [id number] RECEIPT: [id number]
--- NOTE | 2024-10-11 12:05 | DVHHP ---
ADMIT DATE: 10/11/2024 HISTORY OF PRESENT ILLNESS: An 79-year-old with history of ischemic cardiomyopathy, depressed left ventricular ejection fraction. The patient clinically doing well. However, the patient is now having increasing symptoms of shortness of breath. Echocardiogram shows an ejection fraction of 25% done on 08/27/2024. PERTINENT MEDICAL HISTORY: Significant for: * Hypertension. * History of angioplasty with stent placement on 03/17/2023. Ejection fraction has not improved since his angioplasty. History of tobacco use but discontinued smoking 6 years ago. He denies any history of melena, hematochezia, hematemesis, hemoptysis. Denies any history of fever, chills. No recent travels. Denies any history of any liver disease, kidney disease. He is diabetic type 2. But renal function is within normal limits. Current medications include Brilinta, , metoprolol, Benicar. He is maximized on medical management now. He is to undergo BiV AICD implantation. Risks and benefits were explained to the patient. No history of CVA. No history of seizure disorders. No history of movement disorders. No visual disturbances. No history of retinopathy at this time. PHYSICAL EXAMINATION: VITAL SIGNS: Blood pressure is 124/80, pulse of 60 and regular, O2 saturation 98%. HEENT: Pupils are reactive. Funduscopic exam shows no AV nicking, no exudates, no papilledema. Sclerae anicteric. Extraocular muscles are intact. Oral mucosa moist. Posterior pharynx without any exudate. NECK: No cervical adenopathy. No supraclavicular adenopathy. No axillary adenopathy. Carotid pulses are 2+ symmetrical. No JVD appreciated. PULMONARY: Clear to auscultation. Tympanic to percussion. No rhonchi, no wheezes, or egophony. CARDIOVASCULAR: Regular rate. PMI slightly diffuse, laterally displaced. ABDOMEN: Soft, nontender. Normal bowel sounds. EXTREMITIES: 2+ pulses bilaterally. NEUROLOGIC: DTRs are 2+ symmetrical. Cranial nerves 2-12 within normal limits. Sensory and motor modalities intact. Thus the patient with coronary artery disease, now with ischemic cardiomyopathy. The patient is now to undergo BiV AICD. Further recommendations after the implantation. Matthew Marshall MD SA/DAVID/NIKITA TID: [id number] RECEIPT: [id number]
--- NOTE | 2024-10-11 12:43 | DVHOP ---
DATE OF SURGERY: 10/11/2024 PROCEDURES TO BE PERFORMED: * Bi-V AICD with left bundle branch pacing. * Conscious sedation. * Venography. DESCRIPTION OF PROCEDURE: The patient was prepped and draped in a sterile condition. Then, 1% Xylocaine used to anesthetize the left subclavicular region. Venography was performed. Following that, using a Cook needle, left subclavian vein was engaged. Using a 10-blade, linear incision was made. Using blunt dissection, electrocautery pocket was then dissected out. Then, using a 10-Yemeni sheath and a coronary sinus guide catheter, we attempted to cross the coronary sinus, but we were not able to cannulate the coronary sinus. Because of that, we were able to put a left bundle branch LV lead with appropriate pacing. There was narrow complex with Bi-V pacing. Then, using a 10.5-Yemeni sheath, right ventricular active fixation lead was appropriately positioned. Threshold parameters were obtained. Leads were secured to the chest wall using 0 Ethibond. Using a 7-Yemeni sheath, right atrial elective fixation lead then appropriately positioned. Threshold parameters were obtained. Lead was secured to the chest wall using 0 Ethibond. Generator was implanted. Pocket was irrigated using vancomycin saline solution. Pocket was then closed using a 3-0 Monoderm subcutaneous suture followed by 3-0 Monoderm subreticular sutures. There were no complications. The patient tolerated the procedure well. RESULTS: The patient had a Bi-V AICD with left bundle pacing. Device is Acticor 7HF-T, model number 299189, serial number [id number]. LV lead is Solia S60, model number 000334, serial number [id number]. RV lead is Pamira SD65-18, model number 107867, serial number [id number]. Atrial lead is SOLIA S45, model number 406761, serial number [id number]. Threshold parameters atrium P-wave amplitude of 2.9 mV, threshold of 2.0 volts, impedance of 540 ohms. RV lead, R-wave amplitude was 17.7 mV, threshold of 1 V at 0.4 milliseconds pulse duration, pacing impedance of 675 ohms, shock impedance of 52 ohms. Left ventricular lead R-wave amplitude for 8.2 mV, threshold of 2.2 volts at 0.4 milliseconds pulse duration, pacing impedance of 615 ohms. CONCLUSION: The patient has successful implantation of Bi-V AICD with left bundle pacing. Matthew Marshall MD SA/JOSÉ MIUGEL/ROLA TID: [id number] RECEIPT: [id number]
--- NOTE | 2024-10-12 09:37 | ECG ---
[facility] Test Date: 2024-10-11 Test Time: 11:33:53 Pat Name: MONICA FREDERICK Department: Room: Gender: M Archeologist: SB : 1945 Requested By: FAVIO LANDRUM Order Number: [id number] Reading MD: Jesus Nguyen Measurements Intervals [place] Rate: 61 P: -1 IA: 176 QRS: 3 QRSD: 136 T: 147 QT: 428 QTc: 430 Interpretive Statements Electronic atrial pacemaker Nonspecific intraventricular block T wave abnormality, consider lateral ischemia Electronically Signed On 10-15-2024 22:14:18 PDT by eJsus Nguyen Please click the below link to view image of tracing.
--- NOTE | 2024-10-12 13:23 | ECG ---
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
--- NOTE | 2024-10-12 13:23 | ECG ---
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
== END 2024-10-11 13:30 | disposition home or self-care (01) ==
LOC: CATH 06:21
PROVIDERS: ATTEND Internal Medicine Cardiovascular Disease
DX: I25.5 Ischemic cardiomyopathy (principal); I50.21 Acute systolic (congestive) heart failure; E11.9 Type 2 diabetes mellitus without complications; I10 Essential (primary) hypertension; J81.1 Chronic pulmonary edema; Z87.891 Personal history of nicotine dependence; Z95.810 Presence of automatic (implantable) cardiac defibrillator; Z95.5 Presence of coronary angioplasty implant and graft
CPT/HCPCS: 33225; 33249; 36415; 71045; 80048; 85025; 85610; 85730; 93005; C1730; C1769; C1882; C1887; C1894; J0360; J0690; J1938; J2250; J3010; J3373; J7030; 99152

== ENCOUNTER 2024-10-12 09:55 | Outpatient (CLI) | payer MEDICARE, OTHER ==
--- NOTE | 2024-10-12 11:46 | DVH ---
EXAM: XY CHEST TWO VIEWS ROUTINE CLINICAL HISTORY: POST OP SOB COMPARISON: XY CHEST PORTABLE on DOS: 10/11/24, XY CHEST TWO VIEWS ROUTINE on DOS: 10/08/24 TECHNIQUE: Frontal and lateral view of the chest was obtained FINDINGS: Lines and Tubes: Cardiac pacemaker projects over left chest wall. Lungs: No focal consolidation. Pleura: No effusion. No pneumothorax. Cardiomediastinal contours: Unremarkable. Atherosclerotic vascular calcifications of the thoracic ao rta are noted. Bones: No acute osseous abnormality. IMPRESSION: No acute cardiopulmonary disease.
== END 2024-10-12 17:00 | disposition home or self-care (01) ==
LOC: Rad HDHVI 09:55
PROVIDERS: ATTEND Internal Medicine Cardiovascular Disease
DX: R06.02 Shortness of breath (principal); I70.0 Atherosclerosis of aorta; Z98.890 Other specified postprocedural states
CPT/HCPCS: 71046

== ENCOUNTER 2024-10-29 05:08 | Emergency (ER) | payer MEDICARE, OTHER ==
[~2024-10-29] VITALS: Ht 175.3 cm; Wt 93.1 kg
[2024-10-29 05:13] VITALS: BP 161/86
[2024-10-29] MEDS ORDERED: ACYC400T16 PO (06:34)
--- NOTE | 2024-10-29 06:45 | ED.PDOC ---
History of Present Illness(SKN HPI Comments 79 y/o M, presents to the ED for CC of rash. Patient states, he has had a dry patchy rash to the right side of his face sudden onset, Tuesday (10/26/24). Patient reports, rash has worsened with localized erythema and right eye swelling. Patient denies fever, chills, nausea, vomiting, or body-aches. No oth er symptoms or modifying factors are present at this time. Chief Complaint: Rash Time Seen by MD: 06:40 Primary Care Provider: Willy History of Present Illness: Nurses Notes, Medications, Allergies Allergies: Coded Allergies: NO KNOWN ALLERGIES (Unverified , 10/08/24) Home Meds Active Scripts Acyclovir (ZOVIRAX TABLET) 400 Mg Tb, 1 TAB PO BID, #30 TAB 11 Refills Prov:CATHERINE RICH MD 10/29/24 Reported Medications Metoprolol Succinate (Metoprolol Succinate Er) 50 Mg Tab, 1 TAB PO BID for HYPERTENSION for 30 Days 10/08/24 Glipizide (Glipizide) 10 Mg Tab, 1 TAB PO QAM for DIABETES 10/08/24 Ivabradine Hydrochloride (Corlanor) 5 Mg Tab, 1 TAB PO BID for HEART FAILURE 10/08/24 Ticagrelor Base (BRILINTA) 90 Mg Tab, 1 TAB PO BID for CAD 10/08/24 Cholecalciferol (VITAMIN D3) 5,000 Unit Cap, 1 CAP PO DAILY for SUPPLEMENT 10/08/24 Potassium Chloride (POTASSIUM CHLORIDE CR) 10 Meq Tb, 1 TAB PO DAILY for SUPPLEMENT 10/08/24 Metformin Hydrochloride (METFORMIN HCL ER) 1,000 Mg Tab, 1 TAB PO BID for DIABETES 10/08/24 Olmesartan Medoxomil-Hydrochlo (Benicar Hct) 1 Tab Tab, 1 TAB PO BID for HYPERTENSION 03/17/23 Dapagliflozin Propanediol (Farxiga) 10 Mg Tab, 1 TAB PO QAM for DIABETES 03/16/23 Tamsulosin Hcl (Tamsulosin Hcl) 0.4 Mg Cap, 1 CAP PO DAILY for BPH 03/16/23 Information Source: Patient Mode of Arrival: Ambulatory Severity: Moderate Timing: Days Duration: Since onset Prehospital treatment: None Location: Face Mechanism: Spontaneous Onset Developed: Rash Object: None Condition of Object: None Retained Foreign Body: No Wound Type: None Immunization Status of Animal: NA Tetanus: Unknown History of: None Associated Signs and Symptoms: None Past Medical History PAST MEDICAL HISTORY: Denies Surgical History: Denies all surgeries Family History Family History: Unknown Social History Smoker: Non-Smoker Alcohol: Denies ETOH Use Drugs: Denies Drug Use Lives In: Home Constitutional: denies: chills, diaphoresis, fatigue, fever, malaise, sweats, weakness, others EENTM: denies: blurred vision, double vision, ear bleeding, ear discharge, ear drainage, ear pain, ear ringing, eye pain, eye redness, hearing loss, mouth pain, mouth swelling, nasal discharge, nose bleeding, nose congestion, nose pain, photophobia, tearing, throat pain, throat swelling, voice changes, others Respiratory: denies: cough, hemoptysis, orthopnea, SOB at rest, shortness of breath, SOB with excertion, stridor, wheezing, others Cardiovascular: denies: chest pain, dizzy spells, diaphoresis, Dyspnea on exertion, edema, irregular heart beat, left arm pain, lightheadedness, palpitations, PND, syncope, others Gastrointestinal: denies: abdomen distended, abdominal pain, blood streaked bowels, constipated, diarrhea, dysphagia, difficulty swallowing, hematemesis, melena, nausea, poor appetite, poor fluid intake, rectal bleeding, rectal pain, vomiting, others Genitourinary: denies: burning, dysuria, flank pain, frequency, hematuria, incontinence, penile discharge, penile sore, pain, testicle pain, testicle swelling, urgency, others Neurological: denies: dizziness, fainting, headache, left sided numbness, left sided weakness, numbness, paresthesia, pre-existing deficit, right sided numbness, right sided weakness, seizure, speech problems, tingling, tremors, weakness, others Musculoskeletal: denies: back pain, gout, joint pain, joint swelling, muscle pain, muscle stiffness, neck pain, others Integumetry: reports: rash; denies: bruises, change in color, change in hair/nails, dryness, laceration, lesions, lumps, wounds, others Allergic/Immunocompromised: denies: Difficulty Healing, Frequent Infections, Hives, Itching, others Hematologic/Lymphatic: denies: anemia, blood clots, easy bleeding, easy bruising, swollen glands, others Endocrine: denies: excessive hunger, excessive sweating, excessive thirst, excessive urination, flushing, intolerance to cold, intolerance to heat, unexplained weight gain, unexplained weight loss, others Psychiatric: denies: anxiety, bipolar disorder, depression, hopeless, panic disorder, schizophrenia, sleepless, suicidal, others All Other Systems: Reviewed and Negative Physical Exam General Appearance: No Apparent Distress HEENT: Normal ENT Inspection, Pharynx Normal, TMs Normal Neck: Full Range of Motion, Non-Tender, Normal, Normal Inspection Respiratory: Chest Non-Tender, Lungs Clear, No Accessory Muscle Use, No Respiratory Distress, Normal Breath Sounds Cardiovascular: No Edema, No JVD, No Murmur, No Gallop, Normal Peripheral Pulses, Regular Rate/Rhythm Breast Exam: Deferred Gastrointestinal: No Organomegaly, Non Tender, No Pulsatile Mass, Normal Bowel Sounds, Soft Genitalia: Deferred Pelvic: Deferred Rectal: Deferred Extremities: No calf tenderness, Normal capillary refill, Normal inspection, Normal range of motion, Non-tender, No pedal edema Musculoskeletal : Apperance: Normal Neurologic: Alert, supervisor loading II-XII nml as Tested, No Motor Deficits, Normal Affect, Normal Mood, No Sensory Deficits Cerebellar Function: Normal Reflexes: Normal Skin: Dry, Normal Color, Rash (Herpes zoster to the right side of the face involving the forehead, scalp and other areas of the right side of the face.), Warm Lymphatic: No Adenopathy Was a procedure done? Was a procedure done?: No Differential Diagnosis (INTG) Differential Diagnosis: Abrasion, Cellulitis, Contusion Differential Diagnosis: Herpes Zoster/Simplex, Other (shingles) Differential Diagnosis: N/A Abscess: N/A Differential Diagnosis: N/A X-Ray, Labs, Meds, VS Vital Signs Date Time Temp Pulse Resp B/P (MAP) Pulse Ox O2 Delivery O2 Flow Rate FiO2 10/29/24 05:13 97.8 101 18 161/86 97 97.8 The patient is being discharged. The patient was given a prescription of acyclovir The patient will return to the emergency department's condition worsens The patient understands and agrees with the management. Time of 1ST Reevaluation: 07:10 Reevaluation 1ST: Unchanged Patient Education/Counseling: Diagnosis, Treatment, Prognosis, Need For Follow Up Family Education/Counseling: No Family Present SEPSIS Sepsis Screen Date sepsis recognized/suspect: Oct 29, 2024 Time Sepsis recognized/suspect: 0517 Recent Procedure: Yes (10/12 PACEMAKER) On Antibiotic Therapy: No Respiratory Rate >20: No Heart Rate >90: Yes Temp<36 C (96.8 F) or >38.3 C: No SBP <90 or MAP <65 mmHG: No New Acute Mental Status Change: No Is the patient on CPAP, BIPAP,: No Vital Signs Date Time Temp Pulse Resp B/P (MAP) Pulse Ox O2 Delivery O2 Flow Rate FiO2 10/29/24 05:13 97.8 101 18 161/86 97 97.8 Departure 1 Departure Time of Disposition: 06:46 Impression: Primary Impression: Herpes zoster virus infection of face and ear nerves Disposition: HOME / SELF CARE / HOMELESS Condition: Fair e-Prescriptions Acyclovir (ZOVIRAX TABLET) 400 Mg Tb 1 TAB PO BID, #30 TAB 11 Refills Prov: CATHERINE RICH MD 10/29/24 Discharged With: Self Critical Care Note Critical Care Time?: No Stability Stability form required: No Heart Score Heart Score: Heart Score Response (Comments) Value History N/A 0 EKG N/A 0 Age N/A 0 Risk Factors N/A 0 Troponin N/A 0 Total 0 I personally scribed for CATHERINE RICH MD ([email or web address]) on 10/29/24 at 06:45. Electronically submitted by Kelin Moreira ([email or web address]). CATHERINE RICH MD Oct 29, 2024 06:45
[2024-10-29] MEDS ORDERED: CLIN150C PO (06:48)
[2024-10-29 07:05] VITALS: PULSE 90; RESP 20; TEMP 97.8
[2024-10-29 07:07] VITALS: O2SAT 98
== END 2024-10-29 07:10 | disposition home or self-care (01) ==
LOC: ER 05:08
DX: B02.9 Zoster without complications (principal); Z79.899 Other long term (current) drug therapy